=== PATIENT | female | born 1985 | race Caucasian/White ===

== ENCOUNTER 2017-11-30 17:01 | Inpatient (IN) | payer OTHER ==
[~2017-11-30] VITALS: Ht 165.1 cm; Wt 82.7 kg
--- OUTSIDE RECORDS SUMMARY | ~2017-11-30 | XMS | Clinical Summary ---
Demographics + + + | Address | [address] | | | [place] [address] | + + + | Home Phone | | + + + | Preferred Language | Unknown | + + + | Marital Status | | + + + | Orthodox Affiliation | Unknown | + + + | Race | Unknown | + + + | Ethnic Group | Unknown | + + + Author + + + | Author | [facility] | | | and [place] | + + + | Organization | [facility] | | | and [place] | + + + | Address | Unknown | + + + | Phone | Unavailable | + + + Support + + + + + | Name | Relationship | Address | Phone | + + + + + | Ashish Del Real | ECON | [address] | | | ([place]) | | [place] [address] | | + + + + + Care Team Providers + +------+ + | Care Jd Edwards Name | Role | Phone | + +------+ + | Rufino Blanca MD | PP | | + +------+ + Allergies + + + + + + | Active Allergy | Reactions | Severity | Noted | Comments | | | | | Date | | + + + + + + | Penicillins | | | 02/23/20 | | | | | | 14 | | + + + + + + Current Medications + + +--------+---------+------+------+-------+ | Prescription | Sig. | Disp. | Refills | Star | End | Statu | | | | | | t | Date | s | | | | | | Date | | | + + +--------+---------+------+------+-------+ | | Take 1-2 tablets by | 10 | 0 | 04/0 | | Activ | | HYDROcodone-acetamin | mouth every 6 hours | tablet | | 5/20 | | e | | ophen (NORCO) 5-325 | as needed for Pain | | | 15 | | | | mg per tablet | for up to 10 doses. | | | | | | + + +--------+---------+------+------+-------+ Active Problems Not on file Immunizations + + + + | Name | Dates Previously Given | Next Due | + + + + | INFLUENZA PF | 04/26/2014 | | | QUAD(PED/ADOL/ADULT) | | | | ,PSKT or VIAL | | | + + + + | TDAP, (ADOL/ADULT) | 08/25/2014 | | + + + + Family History + + +------+ + | Medical History | Relation | Name | Comments | + + +------+ + | Cancer | Maternal | | | | | Grandfath | | | | | er | | | + + +------+ + | Cancer | Maternal | | | | | Grandmoth | | | | | er | | | + + +------+ + | Depression | Mother | | | + + +------+ + | Substance abuse | Mother | | | + + +------+ + + +------+ + + | Relation | Name | Status | Comments | + +------+ + + | Brother | | Alive | | + +------+ + + | Brother | | Alive | | + +------+ + + | Father | | Alive | | + +------+ + + | Maternal Grandfather | | | | + +------+ + + | Maternal Grandmother | | | | + +------+ + + | Mother | | | | + +------+ + + | Paternal Grandfather | | Alive | | + +------+ + + | Paternal Grandmother | | Alive | | + +------+ + + | Sister | | Alive | | + +------+ + + | Son | | Alive | | + +------+ + + Social History + +-------+ +--------+------+ | Tobacco Use | Types | Packs/Day | Years | Date | | | | | Used | | + +-------+ +--------+------+ | Never Smoker | | | | | + +-------+ +--------+------+ + +---+---+---+ | Smokeless Tobacco: | | | | | Never Used | | | | + +---+---+---+ + + +---------+ + | Alcohol Use | Drinks/We | oz/Week | Comments | | | ek | | | + + +---------+ + | No | | | | + + +---------+ + + + + | Sex Assigned at | Date Recorded | | | | + + + | Not on file | | + + + Last Filed Vital Signs + + + + | Vital Sign | Reading | Time Taken | + + + + | Blood Pressure | 100/58 | 01/08/20151536 MDT | + + + + | Pulse | 100 | 07/22/20142138 MDT | + + + + | Temperature | 36.7 C (98 F) | 07/22/20142138 MDT | + + + + | Respiratory Rate | 24 | 07/22/20142138 MDT | + + + + | Oxygen Saturation | 100% | 07/22/20142138 MDT | + + + + | Inhaled Oxygen | - | - | | Concentration | | | + + + + | Weight | 72.6 kg (160 lb) | 01/08/20151536 MDT | + + + + | Height | 165.1 cm (5' 5") | 07/22/20149 MDT | + + + + | Body Mass Index | 26.63 | 01/08/20151536 MDT | + + + + Plan of Treatment + + + + + | Health Maintenance | Due Date | Last Done | Comments | + + + + + | Cervical Cancer | | | | | Screening (Pap) | 8 | | | + + + + + | Vaccine: Influenza | | 04/26/2014 | | | (#1) | 8 | | | + + + + + | Vaccine: | | 08/25/2014 | | | Dtap/Tdap/Td (2 - | 5 | | | | Td) | | | | + + + + + Results Not on filefrom Last 3 Months Insurance + +--------+ +------+ +---------+ | Payer | Benefi | Subscriber | Type | Phone | Address | | | t Plan | ID | | | | | | / | | | | | | | Group | | | | | + +--------+ +------+ +---------+ | EMPLOYEE [employer]ENE ADMIN | [employer] | [id number] | PPO | +- | | | MGMT | FIRST | | | [id number] | | | | CHOICE | | | | | + +--------+ +------+ +---------+ | EMPLOYEE [employer]ENE ADMIN | [employer] | [id number] | PPO | +- | | | MGMT | FIRST | | | [id number] | | | | CHOICE | | | | | + +--------+ +------+ +---------+ + +--------+ +--------+ + + | Guarantor Name | Accoun | Relation to | Date | Phone | Billing Address | | | t Type | Patient | of | | | | | | | | | | + +--------+ +--------+ + + | NAT DEL REAL | Person | Self [birth year] Home: | [address] | | | al/Fam | | 1985 | +- | [place] [address] | | | vesna | | | [phone] | | + +--------+ +--------+ + + | NAT DEL REAL | Person | Self [birth year] | Home: | [address] | | | al/Fam | | 1985 | +- | [place] [address] | | | vesna | | | [phone] | | + +--------+ +--------+ + +
[2017-11-30] MEDS ORDERED: PRENATAL FORMU1 EAC3 PO (17:14)
--- NOTE | 2017-11-30 21:00 | NUR ---
RECIEVED REPORT FROM TESFAYE GARCIA AT 2022. PT ARRIVED TO FLOOR, AMBULATES FROM STRETCHER TO BED INDEPENDENTLY. PRN PAIN MEDICATIONS ADMINISTERED FOR 6/10 BACK AND ROQUE. IV LINE INFILTRATED, IV DC. 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 ASSESSMENT COMPLETE. C.O. LRQ PAIN WITH PALPATION, DENIES PAIN AT REST. ACTIVE BOWEL TONES AND SOFT ABD. PT UP TO COMMODE INDEPENDENTLY FOR VOID. PT GIVEN ICE WATER, EDUCATED ON CLEAR LIQUID DIET. CALL LIGHT IN LAP.
--- NOTE | 2017-11-30 22:32 | NUR ---
IV FLUIDS AND ANTIBIOTIC INFUSING WNL. PT C.O. HEADACHE 4-08/27. PT GIVEN COOL CLOTH. CALL LIGHT ON SIDE TABLE. PT HAS NO FURTHER REQUESTS.
--- NOTE | 2017-12-01 00:05 | NUR ---
RESPONDED TO CALL LIGHT. PT UP TO BATHROOM WITH SBA WITH VOID. PT STATES PAIN IS A 1/10. COOL WASHCLOTH GIVEN PER PT REQUEST. NO FURTHER REQUESTS. CALL LIGHT IN REACH.
--- NOTE | 2017-12-01 00:59 | NUR ---
PT IV PUMP ALARMING. PT AWAKE IN BED. GAVE PT COOL CLOTH. NO FURTHER REQUESTS OR COMPLAINTS. CALL LIGHT IN REACH.
--- NOTE | 2017-12-01 02:14 | NUR ---
ANSWERED CALL LIGHT, PT UP TO RESTROOM INDEPENDENTLY TO VOID AND BACK TO BED. ASSESSMENT COMPLETED. PT STATES HEADACHE PAIN IS 1/10. HAS RLQ PAIN ON PALPATION. IV FLUIDS INFUSING WNL. COOL CLOTH GIVEN PER PT REQUEST. CALL LIGHT IN REACH AND PT HAS NO FURTHER REQUESTS.
--- NOTE | 2017-12-01 04:27 | NUR ---
PT SLEEPING IN BED. BREATHING EVEN AND UNLABORED. IV FLUIDS INFUSING WNL. CALL LIGHT IN REACH.
--- NOTE | 2017-12-01 06:00 | NUR ---
PT ARRIVED IN [place] AT 2036. PT UP TO RESTROOM INDEPENDENTLY TO VOID. PRN PAIN MEDS GIVEN FOR HEADACHE, RLQ ABD PAIN, AND BACK PAIN. IVF INFUSING WNL. PT IS ON A CLEAR LIQUID DIET. PT RECEIVING IV ABX. FEBRILE THROUGHOUT SHIFT, PRN TYLENOL ADMINISTERED.
--- NOTE | 2017-12-01 06:30 | NUR ---
PT GIVEN PRN TYLENOL FOR PAIN 4/10 IN RLQ AND TEMP OF 100.7. PT UP TO RESTROOM TO VOID. ABX AND FLUIDS INFUSING WNL. PT GIVEN ICE WATER AND WARM BLANKET FOR CHILLS. NO FURTHER REQUESTS AT THIS TIME.
--- NOTE | 2017-12-01 09:30 | NUR ---
CHANGE OF SHIFT REPORT: REPORT RECIEVED BY OTILIO CARLIN. PATIENT WAS LAYING COMFORTABLY IN BED WITH FAMILY AT BEDSIDE. WHITE BOARD UPDATED. PATIENT WAS INCLUDED IN MORNING REPORT, NO COMPLAINTS AT THIS TIME. WILL CONTINUE TO MONITOR. 0930: ROUNDED ON PATIENT TO ADMINISTER MORNING MEDICATIONS. CUPOLA MELTER AT BEDSIDE COLLECING VITALS. PATINET RESTING COMFORTABLY IN BED WITH CELLPHONE IN HAND.
--- NOTE | 2017-12-01 11:59 | NUR ---
ROUNDED ON PATIENT LAYING COMFORTABLY IN BED WITH SPOUSE AND VISITORS AT BEDSIDE. COMPLAINS OF PAIN IN BACK ON LOWER RIGHT SIDE, DENIES WANTING PAIN MEDICATION, BUT WOULD LIKE TO TRY A HEATING PAD FOR PAIN MANAGEMENT. LUNCH TRAY AT BEDSIDE, WELL HER POSSESSIONS. PATIENT ASSISTED TO BATHROOM AND BACK TO BED.
--- NOTE | 2017-12-01 12:16 | NUR ---
HEATING PAD PLACED ON LEFT LOWER SIDE OF PATIENTS BACK. WILL ROUND ON PATIENT IN 15 MINUTES TO REMOVE HEATING PAD AND TO ASSESS PATIENT.
--- NOTE | 2017-12-01 13:54 | NUR ---
ENTERED PT'S RM-SHE WAS SEVERLY CHILLED-HAD HER DO SOME DEEP BREATHING EXORCISES AND MENTIONED TO HER RN TYRELL ABOUT WARM BLANKETS. SHE WAS ALREADY RETREIVING THEM. STOPPED BY TO CHECK IN ON PT-DOING BETTER, HER BOR WAS IN RM WITH HER. PT REQUESTED PRAYER-WILL FOLLOW NEEDED
--- NOTE | 2017-12-01 14:12 | NUR ---
DR TELLEZ ROUNDED IN THIS PATIENT'S ROOM. NO NEW ORDERS. PT C/O NAUSEA AND HEADACHE. ZOFRAN AND TORADOL GIVEN IV. HEADACHE REPORTED TO BE ACROSS FOREHEAD AREA. DENIES WANT OF WARM BLANKETS AT THIS TIME. NO CHILLS.
--- NOTE | 2017-12-01 14:39 | NUR ---
PATIENT IN BED WITH LIGHTS OFF. RN IN ROOM. RN CHARTED VITALS. FRESH ICE WATER GIVEN. CALL LIGHT IN REACH. NO FURTHER NEEDS AT THIS TIME.
--- NOTE | 2017-12-01 14:59 | NUR ---
VITAL SIGNS UNSTABLE, BP DECREASED, HR ELEVATED, TEMPERUATURE 102.5. TYLENOL GIVEN, IV BOLUS INFUSING. PROVIDED ICE BATH FOR COOL CLOTH. RESTING IN BED WITH CELLPHONE IN HAND.
--- NOTE | 2017-12-01 16:35 | NUR ---
PATIENT REPORTS COMPLETE RELIEF OF HEAD AND FLANK PAIN. CEFEPIME INFUSION COMPLETE.
--- NOTE | 2017-12-01 17:59 | NUR ---
1420: ROUNDED ON PATIENT AND ASSESSED SKIN AFTER HEATING PAD WAS REMOVED, NO SIGN OF REDNESS.
--- NOTE | 2017-12-01 18:11 | NUR ---
PATIENT IS ALERT AND ORIENTED X4. INDEPENDENT IN ROOM. CLEAR LIQUID DIET. HEATING PAD USED FOR PAIN MANAGMENT. COMPLAINED OF NAUSEA AND HEADACHE, ZOFRAN AND TORADOL GIVEN. VITALS BECAME UNSTABLE THIS AFTERNOON: DECREASED BP, INCREASED HR, TEMP OF 102.5. TYLENOL GIVEN AND ICE CLOTH PROVIDED, FEVER REDUCED. IV BOLUS PROVIDED. CULTURES SHOW + GRAM - BACILLI. ANTIBIOTIC INCREASED TO 2 MG JESUS CEFEPIME.
--- NOTE | 2017-12-01 18:14 | NUR ---
MED REC COMPLETE
--- NOTE | 2017-12-01 19:20 | NUR ---
RECEIEVED REPORT FROM TESFAYE SANTILLAN AT 1920. PT RESTING IN BED WITH FAMILY IN ROOM. PT CURRENTLY STATES HER ONLY PAIN IS A HEADAHCE, HOWEVER IS MINIMAL. PT HAD A POOR APPETITE THROUGHOUT THE DAY. PT HAS COOL WASHCLOTH AND PO FLUIDS AT BEDSIDE. NO FURTHER REQUESTS AT THIS TIME. CALL LIGHT IN REACH.
--- NOTE | 2017-12-01 20:03 | NUR ---
PT IV PUMP ALARMING. NEW FLUIDS INFUSING WNL. PT UP TO RESTROOM TO VOID. NO FURTHER REQUESTS AT THIS TIME. CALL LIGHT IN REACH. PT EDUCATED TO USE CALL LIGHT IF PRN PAIN MEDS ARE NEEDED.
--- NOTE | 2017-12-01 22:37 | NUR ---
ASSESSMENT COMPLETE. PT DENIES PAIN IN ABD AND BACK, H.A. PAIN IS A 1-2/10 AT THIS TIME, AND DENIES PRN MEDICATIONS. PT DENIES ABD TENDERNESS ON PALPATION. IVF AND ABX INFUSING WNL. BOWEL TONES ACTIVE. PO FLUIDS AND CALL LIGHT IN REACH.
--- NOTE | 2017-12-01 22:41 | NUR ---
VITALS REASSESSED AT THIS TIME, BP 95/55 (64), HR 83, MD UPDATED. NO NEW ORDERS AT THIS TIME, WILL CONTINUE TO MONITOR.
--- NOTE | 2017-12-02 00:11 | NUR ---
PT SLEEPING IN BED. IVF INFUSING WNL. BREATHING EVEN AND UNLABORED. CALL LIGHT IN REACH.
--- NOTE | 2017-12-02 00:40 | NUR ---
RESPONDED TO CALL LIGHT. IV ABX COMPLETE. PT UP TO VOID INDEPENDENTLY. C.O. MINIMAL BACK PAIN THAT "FEELS LIKE A CRAMP". DENIES NEEDING PRN PAIN MEDICATION AT THIS TIME. PT BACK TO BED WITH CALL LIGHT IN REACH.
--- NOTE | 2017-12-02 01:54 | NUR ---
PT SLEEPING IN BED. IVF INFUSING WNL. CALL LIGHT IN REACH.
--- NOTE | 2017-12-02 02:30 | NUR ---
ASSESSMENT COMPLETE. C/O HEADACHE 07/28, GIVEN PRN PAIN MEDICATION. IV INFILTRATED. PT DENIES ABD/ BACK PAIN AT THIS TIME. NO ABD TENDERNESS ON PALPATION. BP 104/63 AND HR 93. ICE WATER, COOL CLOTH, AND CALL LIGHT AT BESIDE.
--- NOTE | 2017-12-02 04:44 | NUR ---
PT SLEEPING IN BED. BREATHING UNLABORED. CALL LIGHT IN REACH.
--- NOTE | 2017-12-02 05:26 | NUR ---
PT SLEPT THROUGH MOST OF THE NIGHT. UP TO VOID IN RESTROOM INDEPENDENTLY. IVF AND ABX INFUSING WNL. PT GIVEN PRN TYLENOL FOR HEADACHE. CLEAR LIQUID DIET, POOR APPETITE.
--- NOTE | 2017-12-02 06:32 | NUR ---
PT ABX INFUSING WNL. PT UP TO RESTROOM INDEPENDENTLY. PT GIVEN ICE WATER AND ICE FOR APPLE JUICE AND ENCOURAGED TO DRINK FLUIDS. PT DENIES PAIN AT THIS TIME. NO FURTHER REQUESTS AT THIS TIME.
--- NOTE | 2017-12-02 09:16 | NUR ---
CHANGE OF SHIFT: RECIEVED REPORT FROM OTILIO CARLIN DURING CHANGE OF SHIFT. PATIENT RESTING COMFORTABLY IN BED. IV FLUIDS INFUSING. WHITE BOARD UPDATED. NO COMPLAINTS AT THIS TIME. 0916: ROUNDED ON PATIENT FOR 0900 MEDICATIONS ADMINISTRATION. PATIENT WAS LAYING COMFORTABLY IN BED TALKING ON PHONE. SET UP FOR SHOWER AND SALINE LOCKED.
--- NOTE | 2017-12-02 10:02 | NUR ---
PATIENT IN BED, FAMILY AT BEDSIDE. FRESHWATER GIVEN. CALL LIGHT IN REACH. NO FURTHER NEEDS AT THIS TIME.
--- NOTE | 2017-12-02 12:04 | NUR ---
PT RESTING IN BED WITH FAMILY AND A FRIEND PRESENT. PT MENTIONED THAT SHE IS FEELING MUCH BETTER TODAY! WILL LET PT VISIT, I WILL CONTINUE TO FOLLOW.
--- NOTE | 2017-12-02 13:30 | NUR ---
PATIENT IN BED. FRESH WATER GIVEN. PATIENT COMPLAINED OF HEADACHE AND ASKED FOR TYLENOL, RN NOTIFIED. CALL LIGHT IN REACH. NO FURTHER NEEDS AT THIS TIME.
--- NOTE | 2017-12-02 15:53 | NUR ---
ROUNDED ON PATIENT FOR AFTERNOON ASSESSMENT. RESTING COMFORTABLY IN BED. ALL QUESTIONS ANSWERED. NO COMPLAINTS OF PAIN. POSSESSIONS NEARBY. CALL LIGHT WITHIN REACH. NO MORE COMPLAINTS AT THIS TIME. WILL CONTINUE TO MONTIOR.
--- NOTE | 2017-12-02 17:28 | NUR ---
ROUNDED ON PATIENT, LAYING COMFORTABLY IN BED. REASSESSED PAIN, PATIENT REPORTS THAT PAIN HAS REDUCED TO A 1. VISITORS AT BEDSIDE. POSSESSIONS AT BEDSIDE. HELPED PATIENT TO BATHROOM AND BACK TO BED, SITTING UP IN BED. NO MORE COMPLAINTS AT THIS TIME.
--- NOTE | 2017-12-02 18:48 | NUR ---
PATIENT DOING VERY WELL TODAY. AFEBRIBLE. CEFEPIME. D51/2NS+20KCL @125. TYLENOL X1 FOR HEADACHE. CLEAR LIQUID DIET. ADVANCE TOLERATED. ORDERED TOAST AND APPLESAUCE FOR DINNER. LIKELY D/C TOMORROW IF AFEBRILE AND CULTURES BACK.
--- NOTE | 2017-12-02 18:52 | NUR ---
PATIENT UP IN BED EATING DINNER, FAMILY BEDSIDE. FRESH WATER GIVEN. CALL LIGHT IN REACH. NO FURTHER NEEDS AT THIS TIME.
--- NOTE | 2017-12-02 19:15 | NUR ---
ASSISTED PATIENT TO THE BATHROOM. SBA, PATIENT STEADY ON HER FEET. BEDSIDE REPORT AFTER PATIENT WAS BACK IN BED. NO NEEDS AT THIS TIME. FAMILY IN ROOM.
--- NOTE | 2017-12-02 20:50 | NUR ---
VITALS AND I&OS DONE AND CHARTED. BEDSIDE TABLE AND CALL LIGHT WITHIN REACH.
--- NOTE | 2017-12-02 21:02 | NUR ---
VITALS AND I&OS DONE AND CHARTED. FRESH ICE WATER GIVEN. BEDSIDE TABLE AND CALL LIGHT WITHIN REACH.
--- NOTE | 2017-12-02 21:15 | NUR ---
PATIENT RESTING IN BED COLORING AND WATCHING TV. SHE DENIES PAIN. NO NAUSEA. IV FLUIDS PER ORDER, SITE WNL. NO NEEDS AT THIS TIME.
--- NOTE | 2017-12-02 22:30 | NUR ---
RECEIVED REPORT FROM DAY SHIFT RN. PATIENTS ASSESMENT COMPLETED. PATIENTS IV ABX INFUSING PER ORDER. PATIENT DENIES ANY PAIN OR NAUSEA. PATIENT ASSISTED TO THE RESTROOM A SBA. PATIENT IS STEADY ON HER FEET. NO FURTHER NEEDS NOTED. CALL LIGHT IN REACH.
--- NOTE | 2017-12-03 01:05 | NUR ---
PATIENTS PUMP WAS ALARMING. IV ABX COMPLETED. PATIENT DENIES ANY PAIN OR NAUSEA. NO NEEDS NOTED. CALL LIGHT IN REACH.
--- NOTE | 2017-12-03 02:25 | NUR ---
PATIENT IS RESTING IN BED WITH EYES CLSOED, RR 17. CALL LIGHT IN REACH.
--- NOTE | 2017-12-03 04:23 | NUR ---
PATIENT IS RESTING IN BED WITH EYES CLOSED, RR 18. CALL LIGHT IN REACH.
--- NOTE | 2017-12-03 04:52 | NUR ---
PATIENT RESTED WELL THROUHGOUT THE SHIFT. PATIENT IS ON A REGULAR DIET AND TOLERATING IT WELL, NO COMPLAINTS OF NAUSEA. PATIENT DENIED ANY PAIN THROUGHOUT THE SHIFT. PATIENT REMAINED AFEBRILE. IV INFUSING. AAOX3. PATIENT IS INDEPENDENT IN THE ROOM AND IS STEADY ON HER FEET. URINE OUPUT IS QS.
--- NOTE | 2017-12-03 06:28 | NUR ---
VITALS AND I&OS DONE AND CHARTED. FRESH ICE WATER GIVEN. GARBAGES EMPTIED. BEDSIDE TABLE AND CALL LIGHT WITHIN REACH.
--- NOTE | 2017-12-03 06:39 | NUR ---
PATIENT ASSESMENT COMPLETED. PATIENTS MORNING ABX INFUSING PER ORDER. PATIENT DENIES ANY PAIN OR NAUSEA. NO NEEDS NOTED, CALL LIGHT IN REACH.
--- NOTE | 2017-12-03 09:40 | NUR ---
PT IS IN BED, DENIES PAIN, NO DISTRESS, AFEBRILE. PT IS NONTENDER TO PALPATION TO ABDOMEN AND LOW BACK. BOWEL SOUNDS PRESENT X4. PT STATES THAT SHE FEELS BETTER TODAY, ADVANCED TO REGULAR DIET, TOLERATED WELL. WILL CONTINUE TO MONITOR.
[2017-12-03] MEDS ORDERED: CEPHALEXIN500 MG PO (10:34)
--- NOTE | 2017-12-03 11:10 | NUR ---
PATIENT ASSISTED WITH COVER HER IV. PATIENT TOOK HER SHOWER BY HERSELF. SET UP THE BED WITH CLEAN LINENS. NO MORE NEEDS AT THIS TIME.
--- NOTE | 2017-12-03 13:00 | NUR ---
PT IS TO BE DC'D- VERY HAPPY TO HAVE PT HOME AGAIN. EXTENDED A BLESSING
== END 2017-12-03 12:23 | disposition home or self-care (01) | DRG 689 ==
LOC: ED 17:01 → MS 20:01
PROVIDERS: ADMIT Internal Medicine
DX: N10 Acute pyelonephritis (principal); A41.51 Sepsis due to Escherichia coli [E. coli]; B96.20 Unspecified Escherichia coli [E. coli] as the cause of diseases classified elsewhere; K42.9 Umbilical hernia without obstruction or gangrene
CPT/HCPCS: 36415; 74177; 80048; 80053; 81001; 82150; 83605; 83690; 84703; 85025; 87077; 87088; 87186; 96361; 96365; 96375; 99285; J0692; J1170; J1885; J2405; J7030; Q9967

== ENCOUNTER 2024-10-04 07:25 | Day surgery (SDC) | payer BC ==
[2024-09-29 08:25] VITALS: BP 104/69
[~2024-10-04] VITALS: Ht 165.1 cm; Wt 76.8 kg
[~2024-10-04 07:25] MED LIST: BUPROPION HCL200 MG PO; CEFAZOLIN SODIUM 2 GM/20 ML SYR IV SCH; CEPHALEXIN500 MG PO; CLONIDINE HCL0.1 MG PO; CYMBALTA30 MG PO; CYMBALTA60 MG PO; GABAPENTIN300 MG PO; HEParin SOD (PORCINE) 5,000 UNIT/ML SDV SUB-Q SCH; IBLOOD GLUCOSE TEST STRIP 1 EA TEST VI PRN; LACTATED RINGER'S 1,000 ML IV SCH; LIDOCAINE HCL 1% 5 ML SDV INJ ONE; PRENATAL FORMU1 EAC3 PO; WOMEN'S MULTI200 MCG PO
--- NOTE | 2024-10-04 07:35 | NUR ---
PT NOT AVAILABLE FOR VISIT. PROVIDED PRAYER.
[2024-10-04 07:36] VITALS: BP 108/73
[2024-10-04] MEDS ORDERED: MIDAZOLAM HCL 2 MG/2 ML VIAL ONE (08:26)
[2024-10-04] MEDS ORDERED: fentaNYL citrate 100 MCG/2 ML VIAL ONE (08:26)
[2024-10-04] MEDS ORDERED: LIDOCAINE HCL 2% 5 ML SDV ONE (08:27)
[2024-10-04] MEDS ORDERED: KETOROLAC TROMETHAMINE 30 MG/ML VIAL ONE (08:27)
[2024-10-04] MEDS ORDERED: ondansetron HCL 4 MG/2 ML VIAL ONE (08:27)
[2024-10-04] MEDS ORDERED: propofoL 200 MG/20 ML VIAL ONE (08:27)
[2024-10-04] MEDS ORDERED: DEXAMETHASONE SOD PHOS 4 MG/ML VIAL ONE (08:27)
--- NOTE | 2024-10-04 10:09 | NUR ---
10/04/24 Tashi9 Caitlin Garrett PATIENT ARRIVES IN PACU WITH ORAL AIRWAY IN PLACE. 1009: OXYGEN SATURATION 89% ON RA WITH ORAL AIRWAY IN PLACE. OXYGEN ON MASK VIA 8L.
[2024-10-04] MEDS ORDERED: IBUPROFEN 600 MG TAB PO PRN (10:15)
[2024-10-04] MEDS ORDERED: ACETAMINOPHEN 500 MG TAB PO PRN (10:15)
[2024-10-04] MEDS ORDERED: NALOXONE HCL 0.4 MG SYR IV PRN ×2 (10:15)
[2024-10-04] MEDS ORDERED: LACTATED RINGER'S 1,000 ML IV SCH (10:15)
[2024-10-04] MEDS ORDERED: IBUPROFEN600 MG PO (10:15)
[2024-10-04] MEDS ORDERED: ondansetron HCL 4 MG/2 ML VIAL IV PRN ×2 (10:15)
[2024-10-04] MEDS ORDERED: HYDROmorphone HCL 1 MG/ML SYR IV PRN (10:15)
[2024-10-04] MEDS ORDERED: MEPERIDINE HCL 25 MG/1 ML VIAL IV PRN (10:15)
[2024-10-04] MEDS ORDERED: OXYCODONE/APAP 7.5/325 TAB PO PRN (10:15)
[2024-10-04] MEDS ORDERED: fentaNYL citrate 50 MCG/ML SDV IV PRN (10:15)
[2024-10-04] MEDS ORDERED: ACETAMINOPHEN500 MG PO (10:16)
[2024-10-04] MEDS ORDERED: OXYCODON-ACETA1 EAC2 PO (10:16)
--- NOTE | 2024-10-04 10:34 | NUR ---
PT ARRIVES TO DS DEPT FROM PACU VIA STRETCHER. PT IS A&O AND ASKING APPROPRIATE QUESTIONS AT THIS TIME. RESPIRATIONS EVEN AND UNLABORED, NO SIGNS OF DISTRESS. PT TOLERATING SMALL BITES OF JELLO AND ICE WATER WITHOUT REPORTED NAUSEA OR DIFFICULTY SWALLOWING. REPORT RECEIVED FROM NITHYA CARLIN. PT SISTER CALLED AND UPDATED. CALL LIGHT WITHIN REACH, PT PHONE PROVIDED, PT REPORTS NO FURTHER NEEDS OR QUESTIONS AT THIS TIME.
[2024-10-04 10:36] VITALS: BP 109/72
[2024-10-04 11:22] VITALS: BP 109/65
--- NOTE | 2024-10-04 11:25 | NUR ---
IN PT ROOM FOR VS AND ASSESSMENT. NO ACUTE CHANGES FROM PREVIOUS ASSESSMENT. PT REPORTS PAIN REMAINS 0/10, JUST SLIGHT STING AND SHE "CAN TELL IT'S THERE". PT STATES NO NEED FOR PRN PAIN MED AT THIS TIME. PT TOLERATED 100% OF CRACKERS AND JELLO W/NO ONSET OF NAUSEA. PT CONTINUES TO DRINK WATER AND STATES SHE WILL TRY TO PEE IN A LITTLE BIT. CALL LIGHT WITHIN REACH. PT STATES NO FURTHER QUESTIONS OR NEEDS AT THIS TIME.
--- NOTE | 2024-10-04 11:42 | NUR ---
IN PT ROOM FOR PT ATTEMPT TO URINE VOID. PT SITS AT BEDSIDE, THEN STANDS AT BEDSIDE REPORTING NO ONSET OF NAUSEA OR DIZZINESS. PT TO RESTROOM W/THIS RN STANDBY ASSIST. PT GAIT IS STEADY. PT URINE VOIDS 500 ML OF CLEAR/YELLOW URINE. PT BACK TO ROOM AND GETTING DRESSED AT THIS TIME. CALL LIGHT WITHIN REACH, PT STATES NO FURTHER NEEDS OR QUESTIONS AT THIS TIME.
--- NOTE | 2024-10-04 11:55 | NUR ---
THIS RN IN ROOM FOR DC EDUCATION. PT STATES VERBAL UNDERSTANDING AND NO FURTHER QUESTIONS OR NEEDS AT THIS TIME. PT OFF OF UNIT VIA WC TO PASSENGER SIDE OF SISTER'S VEHICLE. ALL BELONGINGS IN PT POSSESSION.
[2024-10-04] MEDS ORDERED: SEVOFLURANE 250 ML BTL INH ONE (13:15)
--- NOTE | 2024-10-06 11:32 | OR ---
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 POSTOPERATIVE DIAGNOSIS: Right inferolateral 2.5 cm breast mass most consistent with fibroadenoma. PROCEDURE: Excision of breast mass, right lower outer aspect of breast. ANESTHESIA: General LMA; Edgardo Kiran CRNA, and local 5 mL of 0.25% Marcaine with epinephrine. INDICATION: This 38-year-old woman is a patient of Marcell Donovan PA-C. She was noted to have a palpable mass in the right breast in the inferolateral aspect. She has undergone excision of a breast mass in the past in [facility] in 2009. That lesion was benign. The palpable mass is not particularly painful and is quite obvious on clinical examination and most consistent with a fibroadenoma. A mammogram performed on August 11, 2024 confirmed bilateral breast masses any cyst compatible with benign findings on the left. The right palpable mass is most consistent with fibroadenoma. It approximately 7 cm from the areolar margin at 8 o'clock position. A nonpalpable lesion is noted 2.4 cm in size, similarly oval at the 10 o'clock position, which was nonpalpable. She is admitted at this time to undergo excision of the mass in the lower outer aspect. Options of management included core biopsy or other biopsy measures, though she prefers complete excision at this time. The risk of bleeding, infection, cosmetic deformity, and so forth were reviewed with her, she understands and wished to proceed. FINDINGS: The mass was highly consistent with a benign fibroadenoma, measured approximately 2.5 cm in size. The inferolateral breast crease incision was used to provide optimal cosmetic benefit. There were no complications. DESCRIPTION OF PROCEDURE: The patient was brought to the operating room, given a general LMA type anesthetic. Preoperative antibiotic Ancef was given. Sequential compression device stockings were used. The right breast was prepared with a chlorhexidine solution and draped sterilely. Electronically Signed By: MAKENNA KYLE MD 10/06/24 1132 PATIENT NAME: YU WALTERS OPERATIVE REPORT DATE OF : 89 REPORT #: [id number] PHYSICIAN: MAKENNA KYLE MD PCP: MARCELL DONOVAN PAC REPORT IS CONFIDENTIAL AND NOT TO BE RELEASED WITHOUT AUTHORIZATION [facility] [address], [place] [address] Signed The palpable mass at the 8 o'clock position was easily identified. Optimal incision placement was deemed the infra breast crease rather than directly over the mass. A circumareolar incision was not appropriate given the anatomic findings. Incision in the inferior lateral breast crease was made and dissection carried through the dermis with electrocautery. A small flap was elevated cephalad identifying the nodule in question. The nodule was secured with a suture for traction. Using electrocautery, wide resection was undertaken explanting it entirely. Hemostasis was optimal. The wound was closed with interrupted 2-0 Vicryl and running subcuticular 3-0 Vicryl for the skin. Steri-Strips were applied. Orientation of the nodule was not undertaken given the benign findings. Steri-Strips were applied after application of 5 mL of 0.25% Marcaine with epinephrine. An Acticoat dressing was applied. She was ultimately extubated and transferred to the recovery room in good condition having suffered no complications. Sponge, needle and instrument counts reported as correct x3. MD MIGUE Noel/PEGGYL /[id number] cc: Marcell Donovan PA-C Copies: ~ Electronically Signed By: MAKENNA KYLE MD 10/06/24 1132 PATIENT NAME: YU WALTERS OPERATIVE REPORT DATE OF : [birth year] REPORT #: [id number] PHYSICIAN: MAKENNA KYLE MD PCP: MARCELL DONOVAN PAC REPORT IS CONFIDENTIAL AND NOT TO BE RELEASED WITHOUT AUTHORIZATION
--- NOTE | 2024-10-06 12:33 | PATH ---
[facility] [address] [place], [place] [address] Signed SPECIMEN(S): A RIGHT LATERAL INFERIOR BREAST MASS SPECIMEN SOURCE: A. RIGHT LATERAL INFERIOR BREAST MASS CLINICAL HISTORY: Right breast mass FINAL PATHOLOGIC DIAGNOSIS: Right lateral inferior breast mass, lumpectomy: - Morphologic features consistent with fibroadenoma, completely excised. - Negative for atypia or malignancy. NA MICROSCOPIC EXAMINATION: Histologic sections of all submitted blocks are examined by light microscopy. These findings, together with the gross examination, support the pathologic diagnosis. GROSS DESCRIPTION: The specimen, labeled and designated "Garry Del Real, right inferior breast tissue," is received in formalin and consists of a 8 g, 3.3 x 3 x 2.3 cm unoriented portion of yellow lobulated fibroadipose tissue. The outer surface is inked black and the specimen is serially sectioned and 6 slices revealing a 2.4 x 2.1 x 2 cm firm white-pink lobular mass abutting the closest unoriented margin. No biopsy clip is identified. The background parenchyma is comprised of 30% white-pink fibrous tissue and 70% yellow lobulated fibroadipose tissue. No additional masses are identified. The specimen is entirely submitted as follows: Cassette Summary: (A1) slice 1, serially section (A2) slice 2 (A3) slice 3 (A4) slice 4 (A5) slice 5 (A6) slice 6, serially section Time of collection: 10:53 AM 10/04/2024. Time into formalin: 10:56 AM 10/04/2024. Processor load time: 12:00 PM 10/05/2024. Ischemic time: 3 minutes PATIENT NAME: YU DEL REAL PATHOLOGY DATE OF : 89 REPORT #: [id number] PHYSICIAN: GUNNAR BOOTHE PCP: MARCELL MARTINEZ PAC REPORT IS CONFIDENTIAL AND NOT TO BE RELEASED WITHOUT AUTHORIZATION [facility] [address] [place], [place] [address] Signed Total fixation time in formalin: 25 hours 4 minutes The ASCO/CAP guidelines related to HER2 and hormone receptor testing in breast specimens have been met and the specimen has been placed in formalin within one hour and fixed in 10% neutral buffered formalin for 6 to 72 hours. AA (under the direct supervision of a pathologist) The Gross Description was prepared using a voice recognition system. The report was reviewed for accuracy; however, sound-alike word errors, addition and/or deletions may occur. If there is any question about this report, please contact Client Services. ADDITIONAL NOTES: Immunohistochemical and/or in situ hybridization studies if performed in this case included appropriate positive controls that reacted as expected. This test was developed and its performance characteristics determined by [facility]. It has not been cleared or approved by the U.S. Food and Drug Administration. The FDA has determined that such clearance or approval is not necessary. This test is used for clinical purposes. It should not be regarded as investigational or for research. [facility] is certified under the Clinical Laboratory Improvement Amendments of 1988 (CLIA) as qualified to perform high complexity clinical laboratory testing. PERFORMING LABORATORY: Technical component was performed by [facility], [address] [place] [address] (CLIA# [id number]). Professional interpretation was performed by [facility], [address] [place] [address] (CLIA#: [id number]). Diagnostician: Kaitlin Shepherd MD Pathologist Electronically Signed 10/06/2024 Copies: ~ PATIENT NAME: YU DEL REAL PATHOLOGY DATE OF : 89 REPORT #: [id number] PHYSICIAN: GUNNAR BOOTHE PCP: MARCELL MARTINEZ PAC REPORT IS CONFIDENTIAL AND NOT TO BE RELEASED WITHOUT AUTHORIZATION
== END 2024-10-04 12:00 | disposition home or self-care (01) ==
LOC: DS 07:25
PROVIDERS: ATTEND Surgery
PROC: 0HBT0ZZ Excision of Right Breast, Open Approach (ICD-10-PCS; principal; 2024-10-04 09:15)
DX: N63.13 Unspecified lump in the right breast, lower outer quadrant (principal); Z79.899 Other long term (current) drug therapy; Z88.0 Allergy status to penicillin
CPT/HCPCS: 00400; J0690; J1100; J1644; J1885; J2003; J2250; J2405; J2704; J3010; J7121